=== PATIENT | male | born 1965 | race Caucasian/White ===

== ENCOUNTER → 2020-07-15 | Outpatient (CLI) | payer BC ==
[2020-07-15 09:32] LABS: HCT 49.7 % (39.0-53.0); HGB 16.2 gm/dL (13.0-17.5); MCH 30.5 pg (25.0-35.0); MCHC 32.6 g/dL (31.0-37.0); MCV 93.5 fL (80.0-100.0); Mean Platelet Volume 6.3; Platelet Count 237 k/uL (150-450); RBC 5.32 m/uL (4.30-5.90); RDW 13.6 % (11.5-15.5); WBC 7.3 k/uL (3.8-10.6)
[2020-07-15 14:47] LABS: African American GFR (CKD) 87.7 (60.0-200.0); Albumin 4.4 g/dL (3.80-4.90); Albumin/Globulin Ratio 2.32 (1.60-3.17); Anion Gap 6.9 mmol/L (4.00-12.00); BUN/Creat Ratio 22.73 Ratio (12.00-20.00); Calcium 8.7 mg/dL (8.7-10.3); Carbon Dioxide 30.1 mmol/L (21.6-31.8); Globulin 1.9 g/dL (1.6-3.3); LDL Cholesterol,Calculated 89.8 mg/dL (0.0-131.0); Non-African American GFR(CKD) 75.7 (60.0-200.0); Potassium 4.2 mmol/L (3.5-5.5); Total Bilirubin 0.8 mg/dL (0.2-1.2); Total Protein 6.3 g/dL (6.2-8.2); VLDL Calculation 30.2 mg/dL (5.00-40.00)
[2020-07-15 14:57] LABS: Prostate Specific Antigen 0.6 ng/mL (0.0-3.5)
== END | disposition home or self-care (01) ==
LOC: LABWHC1 08:23
PROVIDERS: ATTEND Family Medicine
DX: Z00.01 Encounter for general adult medical examination with abnormal findings (principal)
CPT/HCPCS: 36415; 80053; 80061; 84153; 85027

== ENCOUNTER 2020-09-01 13:55 | Emergency (ER) | payer BC ==
[2020-09-01 14:08] VITALS: RESP 18
[2020-09-01] MEDS ORDERED: SODIUM CHLORIDE 0.9% 1,000 ML IV STA (14:55)
[2020-09-01] MEDS ORDERED: ONDANSETRON 4 MG/2 ML VIAL IVP STA (14:55)
[2020-09-01] MEDS ORDERED: KETOROLAC 15 MG/ML 1 ML VIAL IVP STA (14:55)
--- NOTE | 2020-09-01 15:07 | ED ---
General Adult HPI - General Chief complaint: Abdominal Pain Stated complaint: Abd pain Time Seen by Provider: 09/01/20 14:26 Source: patient, RN notes reviewed Mode of arrival: ambulatory Limitations: no limitations - History of Present Illness Initial comments: 55-year-old male with a past medical history of hyperlipidemia, hypertension, asthma presents to the emergency room for a chief complaint of abdominal pain. Patient reports that 3 days ago at night he started to have right lower quadrant pain. States it is severe. States it comes and goes and seems to be worse at night. States he has also had nausea and vomiting. He has had some diarrhea as well. Today he has not had too much of an appetite.Patient has no other complaints at this time including shortness of breath, chest pain, nausea or vomiting, headache, or visual changes. - Related Data Home Medications Medication Instructions Recorded Confirmed Aspirin EC [Ecotrin Low Dose] 81 mg PO DAILY 09/01/20 09/01/20 Fluticasone Nasal [place] [Flonase 1 spray EA NOSTRIL BID PRN 09/01/20 09/01/20 Nasal [place]] Metoprolol Succinate (ER) [Toprol 25 mg PO DAILY 09/01/20 09/01/20 Xl] Montelukast Sodium [Singulair] 10 mg PO HS 09/01/20 09/01/20 Multivitamins, Thera [Multivitamin 1 tab PO DAILY 09/01/20 09/01/20 (formulary)] Simvastatin [Zocor] 10 mg PO HS 09/01/20 09/01/20 Previous Rx's Medication Instructions Recorded Ibuprofen [Motrin] 600 mg PO Q6HR PRN #20 tab 09/01/20 Ondansetron [Zofran ODT] 4 mg PO Q8HR PRN #15 tab 09/01/20 Tamsulosin [Flomax] 0.4 mg PO DAILY #20 cap 09/01/20 Allergies Allergy/AdvReac Type Severity Reaction Status Date / Time No Known Allergies Allergy Verified 09/01/20 16:29 Review of Systems ROS Statement: Those systems with pertinent positive or pertinent negative responses have been documented in the HPI. ROS Other: All systems not noted in ROS Statement are negative. Past Medical History Past Medical History: Asthma, Hyperlipidemia, Hypertension History of Any Multi-Drug Resistant Organisms: None Reported Past Surgical History: Appendectomy, Orthopedic Surgery Past Psychological History: No Psychological Hx Reported Smoking Status: Never smoker Past Alcohol Use History: Occasional Past Drug Use History: None Reported General Exam Limitations: no limitations General appearance: alert Head exam: Present: atraumatic Eye exam: Present: normal appearance, PERRL, EOMI ENT exam: Present: normal exam, mucous membranes moist Neck exam: Present: normal inspection, full ROM. Absent: tenderness Respiratory exam: Present: normal lung sounds bilaterally. Absent: respiratory distress, wheezes Cardiovascular Exam: Present: regular rate, normal rhythm, normal heart sounds GI/Abdominal exam: Present: soft, normal bowel sounds. Absent: distended, tenderness (no tenderness), guarding, rebound, rigid Back exam: Absent: CVA tenderness (R), CVA tenderness (L) Course Vital Signs 09/01/20 09/01/20 09/01/20 14:05 15:10 16:28 Temperature 98.4 F 98.3 F Pulse Rate 107 H 76 84 Respiratory 18 18 18 Rate Blood Pressure 177/122 139/90 137/90 O2 Sat by Pulse 98 97 96 Oximetry Medical Decision Making - Medical Decision Making Vitals stable. CBC unremarkable. Patient did have hemoconcentration and was dehydrated and was given a liter of fluids. Gen. Jose Juan. Urinalysis did show red blood cells. No sign of infection. CT abdomen and pelvis did show a partially obstructive distal right ureteral calculus measuring 7 mm.Patient's pain is controlled. Discussed pain control. Discussed following up with urology. Patient will return for any worsening symptoms. - Lab Data Result diagrams: 09/01/20 15:01 09/01/20 15:01 Lab Results 09/01/20 09/01/20 09/01/20 Range/Units 15:01 15:01 15:01 WBC 11.8 H (3.8-10.6) k/uL RBC 5.59 (4.30-5.90) m/uL Hgb 17.7 H (13.0-17.5) gm/dL Hct 51.6 (39.0-53.0) % MCV 92.3 (80.0-100.0) fL MCH 31.7 (25.0-35.0) pg MCHC 34.3 (31.0-37.0) g/dL RDW 13.0 (11.5-15.5) % Plt Count 292 (150-450) k/uL MPV 6.5 Neutrophils % 68 % Lymphocytes % 26 % Monocytes % 5 % Eosinophils % 0 % Basophils % 0 % Neutrophils # 8.0 H (1.3-7.7) k/uL Lymphocytes # 3.1 (1.0-4.8) k/uL Monocytes # 0.5 (0-1.0) k/uL Eosinophils # 0.0 (0-0.7) k/uL Basophils # 0.0 (0-0.2) k/uL Sodium 142 (137-145) mmol/L Potassium 4.5 (3.5-5.1) mmol/L Chloride 103 (98-107) mmol/L Carbon Dioxide 28 (22-30) mmol/L Anion Gap 11 mmol/L BUN 23 H (9-20) mg/dL Creatinine 1.17 (0.66-1.25) mg/dL Est GFR (CKD-EPI)AfAm 81 (>60 ml/min/1.73 sqM) Est GFR (CKD-EPI)NonAf 70 (>60 ml/min/1.73 sqM) Glucose 117 H (74-99) mg/dL Calcium 9.5 (8.4-10.2) mg/dL Total Bilirubin 0.8 (0.2-1.3) mg/dL AST 42 (17-59) U/L ALT 45 (4-49) U/L Alkaline Phosphatase 81 (38-126) U/L Total Protein 7.3 (6.3-8.2) g/dL Albumin 4.7 (3.5-5.0) g/dL Amylase 63 (30-110) U/L Lipase 42 (23-300) U/L Urine Color Yellow Urine Appearance Clear (Clear) Urine pH 7.0 (5.0-8.0) Ur Specific [place] 1.014 (1.001-1.035) Urine Protein Negative (Negative) Urine Glucose (UA) Negative (Negative) Urine Ketones Negative (Negative) Urine Blood Large H (Negative) Urine Nitrite Negative (Negative) Urine Bilirubin Negative (Negative) Urine Urobilinogen <2.0 (<2.0) mg/dL Ur Leukocyte Esterase Negative (Negative) Urine RBC 125 H (0-5) /hpf Urine WBC 1 (0-5) /hpf Urine Mucus Rare H (None) /hpf Disposition Clinical Impression: Kidney stone on right side Disposition: HOME SELF-CARE Condition: Good Instructions (If sedation given, give patient instructions): Kidney Stones (ED) Additional Instructions: Please take Motrin for pain. If pain is severe take Tylenol 3. Please take Zofran as needed for nausea. Take Flomax daily. Follow up with urology by calling tomorrow for an appointment. Return to the emergency room for any worsening symptoms. Prescriptions: Tamsulosin [Flomax] 0.4 mg PO DAILY #20 cap Ibuprofen [Motrin] 600 mg PO Q6HR PRN #20 tab PRN Reason: Pain Ondansetron [Zofran ODT] 4 mg PO Q8HR PRN #15 tab PRN Reason: Nausea Is patient prescribed a controlled substance at d/c from ED?: No Referrals: Herber Lovell MD [Primary Care Provider] - 1-2 days Yared Bowden MD [STAFF PHYSICIAN] - 1-2 days Time of Disposition: 17:00
[2020-09-01 15:14] LABS: Basophils % (A) 0 %; Eosinophils % (A) 0 %; HCT 51.6 % (39.0-53.0); HGB 17.7 gm/dL (13.0-17.5); Lymphocytes # (A) 3.1 k/uL (1.0-4.8); Lymphocytes % (A) 26 %; MCH 31.7 pg (25.0-35.0); MCHC 34.3 g/dL (31.0-37.0); MCV 92.3 fL (80.0-100.0); Mean Platelet Volume 6.5; Monocytes # (A) 0.5 k/uL (0-1.0); Monocytes % (A) 5 %; Neutrophils % (A) 68 %; Platelet Count 292 k/uL (150-450); RBC 5.59 m/uL (4.30-5.90); WBC 11.8 k/uL (3.8-10.6)
[2020-09-01 15:21] LABS: Appearance,Urine Clear (Clear); Bilirubin,Urine Negative (Negative); Blood,Urine Large (Negative); Color,Urine Yellow; Glucose,Urine (UA) Negative (Negative); Ketones,Urine Negative (Negative); Leukocyte Esterase,Urine Negative (Negative); Mucus,Urine Rare /hpf; Nitrite,Urine Negative (Negative); Protein,Urine Negative (Negative); RBC,Urine 125 /hpf (0-5); Specific Gravity,Urine 1.014 (1.001-1.035); Urobilinogen,Urine <2.0 mg/dL (<2.0); WBC,Urine 1 /hpf (0-5)
[2020-09-01 15:23] LABS: Albumin 4.7 g/dL (3.5-5.0); Calcium 9.5 mg/dL (8.4-10.2); Potassium 4.5 mmol/L (3.5-5.1); Total Bilirubin 0.8 mg/dL (0.2-1.3); Total Protein 7.3 g/dL (6.3-8.2)
--- NOTE | 2020-09-01 15:59 | CT ---
EXAMINATION TYPE: CT abdomen pelvis w con DATE OF EXAM: 09/01/2020 COMPARISON: HISTORY: Severe stomach pains CT DLP: 1015.6 mGycm Automated exposure control for dose reduction was used. TECHNIQUE: Helical acquisition of images from the lung bases through the pelvis have been completed. CONTRAST: Performed without Oral Contrast and with IV Contrast, patient injected with 100 mL of Isovue 300. FINDINGS: Posterior right diaphragmatic hernia contains fat LUNG BASES: No significant abnormality is appreciated. AORTA: No significant abnormality is appreciated. LIVER/GB: No significant abnormality is appreciated. PANCREAS: No significant abnormality is seen. SPLEEN: No significant abnormality is seen. ADRENALS: No significant abnormality is seen. KIDNEYS: There is some mild right-sided hydronephrosis, right hydroureter, perinephric inflammatory c hanges. Distal right ureteral calculus is present measuring approximately 7 mm in transverse dimensio n, 5 mm in cephalad to caudal dimension. Punctate nonobstructive calculus present at the midpole the right kidney. REPRODUCTIVE ORGANS: No significant abnormality is seen BOWEL: No significant abnormality is seen. FREE AIR: No Free Air visible. ASCITES: None visible. PELVIC ADENOPATHY: None visualized. RETROPERITONEAL ADENOPATHY: No Retroperitoneal Adenopathy visible. URINARY BLADDER: No significant abnormality is seen. OSSEOUS STRUCTURES: There are some degenerative disc changes in the lower lumbar spine. IMPRESSION: PARTIALLY OBSTRUCTIVE DISTAL RIGHT URETERAL CALCULUS,
[2020-09-01 16:29] VITALS: BP 137/90; PULSE 84; TEMP 98.3
[2020-09-01] MEDS ORDERED: ACET/COD 300 MG/30 MG STARTER PACK 6 TAB BTL PO STA (17:01)
--- NOTE | 2020-09-01 18:50 | XR ---
EXAM: Abdomen radiograph. HISTORY: Pain. TECHNIQUE: Supine and upright AP views. COMPARISON: Same-day CT. FINDINGS: There are nondilated bowel loops with a nonobstructive pattern. No free air. No acute osseous abnorma lity seen. There is excreted contrast opacification of the renal collecting system and urinary bladde r. There is mild dilatation of the right renal collecting system, consistent with known hydronephrosi s. The known right ureteral calculus is radiographically occult. IMPRESSION: Nonobstructive bowel gas pattern.
== END 2020-09-01 17:13 | disposition home or self-care (01) ==
LOC: EC 13:55
DX: N20.2 Calculus of kidney with calculus of ureter (principal); E86.0 Dehydration; I10 Essential (primary) hypertension; J45.909 Unspecified asthma, uncomplicated; E78.5 Hyperlipidemia, unspecified; Z79.82 Long term (current) use of aspirin; Z79.899 Other long term (current) drug therapy; Z90.89 Acquired absence of other organs
CPT/HCPCS: 36415; 80053; 82150; 83690; 85025; 81001; 74018; 74177; 99284; 96374; 96375; 96361; J2405; J1885; Q9967

== ENCOUNTER 2020-09-09 14:43 | Day surgery (SDC) | payer BC ==
[2020-09-07 14:21] VITALS: BMI 28.7
--- NOTE | 2020-09-08 21:13 | P.HPIHPCON ---
History of Present Illness H&P Date: 09/09/20 Chief Complaint: right ureteral calculi 55 yo male with hx of 7mm right distal stone, patient has been symptomatic secondary to his stone, surgical option including ureteroscopy with holmium laser and ESWL was discussed with him. I discussed with him the risk and benefit of each approach. He agreed to proceed with right sided ureteroscopy with holmium laser lithotripsy. He understood the risk which include but not limited to bleeding, infection and injury to the ureter. Consent for Procedure: I have explained the operation/procedure to the patient, including the risks, benefits, side effects, alternative therapies (including not receiving the proposed treatment or service), the likelihood of the patient achieving his/her goals, and potential recuperation problems for the procedure/sedation/analgesia, as well as any blood products, if indicated. I also explained to the patient the risks, benefits and side effects of the alternatives, as well as the risks related to not receiving the proposed procedure, care, treatment, or services. Past Medical History Past Medical History: Asthma, Cancer, Hyperlipidemia, Hypertension, Skin Disorder Additional Past Medical History / Comment(s): kidney stones , hx migraines, psoriatric arthritis, psoriasis, borderline cholesterol, melanoma History of Any Multi-Drug Resistant Organisms: None Reported Past Surgical History: Appendectomy, Orthopedic Surgery Additional Past Surgical History / Comment(s): surgery to remove melanoma, ORIF rt ankle, rt shoulder rotator cuff Past Anesthesia/Blood Transfusion Reactions: No Reported Reaction Smoking Status: Never smoker - Past Family History Mother Family Medical History: No Reported History Medications and Allergies Home Medications Medication Instructions Recorded Confirmed Type Aspirin EC [Ecotrin Low Dose] 81 mg PO HS 09/01/20 09/07/20 History Fluticasone Nasal [place] [Flonase 1 spray EA NOSTRIL BID 09/01/20 09/07/20 History Nasal [place]] Ibuprofen [Motrin] 600 mg PO Q6HR PRN #20 tab 09/01/20 09/07/20 Rx Metoprolol Succinate (ER) [Toprol 12.5 mg PO DAILY 09/01/20 09/07/20 History Xl] Montelukast Sodium [Singulair] 10 mg PO HS 09/01/20 09/07/20 History Multivitamins, Thera [Multivitamin 1 tab PO DAILY 09/01/20 09/07/20 History (formulary)] Ondansetron [Zofran ODT] 4 mg PO Q8HR PRN #15 tab 09/01/20 09/07/20 Rx Simvastatin [Zocor] 10 mg PO HS 09/01/20 09/07/20 History Acetaminophen-Codeine 300-30mg 1 tab PO DIRECTED PRN 09/07/20 09/07/20 History [Tylenol w/codeine #3] Tamsulosin [Flomax] 0.4 mg PO HS 09/07/20 09/07/20 History Allergies Allergy/AdvReac Type Severity Reaction Status Date / Time No Known Allergies Allergy Verified 09/07/20 14:10 Surgical - Exam - General well developed, well nourished, no distress, moderate pain - Respiratory normal expansion, normal respiratory effort - Abdomen Abdomen: soft, non tender Assessment and Plan Assessment: 55 yo male with hx of 7 mm right sided ureteral stone -OR for right sided ureteroscopy with homium laser, stone basketting and possible stent placement
[2020-09-09] MEDS ORDERED: ONDANSETRON 4 MG/2 ML VIAL ONE (15:13)
--- NOTE | 2020-09-09 15:21 | XR ---
EXAMINATION TYPE: XR KUB DATE OF EXAM: 09/09/2020 Comparison: 09/01/2020 Clinical History: 55-year-old male presurgical evaluation, kidney stones Findings: 7 mm calculus in the right side of the pelvis is redemonstrated. Nonobstructive bowel gas pattern. Sc attered [id number] stool. Impression: Persistent 7 mm distal right ureteral or UVJ calculus.
[2020-09-09] MEDS ORDERED: ONDANSETRON 4 MG/2 ML VIAL IVP ONE (15:32)
[2020-09-09] MEDS ORDERED: LACTATED RINGERS 1,000 ML IV ONE ×4 (15:32→19:00)
[2020-09-09] MEDS ORDERED: DEXAMETHASONE SOD PHOSPHATE 4 MG/ML 1 ML VIAL IVP ONE (15:32)
[2020-09-09] MEDS ORDERED: PROPOFOL 10 MG/ML 20 ML VIAL IV ONE (17:10)
[2020-09-09] MEDS ORDERED: NEOSTIGMINE 1 MG/ML 10 ML VIAL ONE (17:10)
[2020-09-09] MEDS ORDERED: MIDAZOLAM 2 MG/2 ML VIAL ONE (17:10)
[2020-09-09] MEDS ORDERED: LIDOCAINE 1% INJ 10MG/ML (20 ML MDV) ONE (17:10)
[2020-09-09] MEDS ORDERED: SUCCINYLCHOLINE CHLORIDE 100 MG/5 ML SYR IV ONE (17:10)
[2020-09-09] MEDS ORDERED: fentaNYL (PF) 50 MCG/ML 2 ML AMP ONE (17:10)
[2020-09-09] MEDS ORDERED: ROCURONIUM 10 MG/ML (5 ML VIAL) IV ONE (17:10)
[2020-09-09] MEDS ORDERED: GLYCOPYRROLATE 0.2 MG/ML 2 ML VIAL ONE (17:10)
[2020-09-09] MEDS ORDERED: IOHEXOL 350 MG/ML 50 ML in EMPTY BAG 1 BAG IRRIGATION ONE (17:56)
--- NOTE | 2020-09-09 18:11 | P.OP ---
Date of Procedure: 09/09/20 Preoperative Diagnosis: Right ureteral calculi Postoperative Diagnosis: Same Procedure(s) Performed: Cystoscopy, right ureteroscopy, holmium laser lithotripsy, stone basketing, retrograde pyelogram and stent placement Implants: 6-[place] by 26 cm stent left on a string Anesthesia: KIRILL Surgeon: Christ Fernandez Estimated Blood Loss (ml): 1 Pathology: other (Right ureteral calculi) Condition: stable Disposition: PACU Indications for Procedure: 55 yo male with hx of 7mm right distal stone, patient has been symptomatic secondary to his stone, surgical option including ureteroscopy with holmium laser and ESWL was discussed with him. I discussed with him the risk and benefit of each approach. He agreed to proceed with right sided ureteroscopy with holmium laser lithotripsy. He understood the risk which include but not limited to bleeding, infection and injury to the ureter. Operative Findings: Right distal ureteral stone Description of Procedure: Patient was brought to the operating room, general anesthesia was induced. He was prepped and draped so fashion a placement dorsal lithotomy position. Cystoscopy fitted with 21-[place] sheath was inserted per urethra, cystoscopy was performed showed no abnormality within the bladder. This time the cystoscope was withdrawn and a semirigid ureteroscope was inserted and advanced through the urethra, the right ureteral orifice was identified and the ureteroscope was advanced up the ureteral orifice, a stone was encountered in the distal ureter. Using a holmium laser the stone was fragmented into small fragments. Sizable fragments were removed using the stone basket. Stone fragments were sent for analysis. At this time the ureteroscope was advanced to the proximal ureter which showed no evidence of additional stones or injury to the ureter. Retrograde pyelogram was performed through the ureteroscope which showed no filling defect in the kidney. Of note there was mild hydronephrosis. Pullback ureteroscopy was performed which showed no injury to the ureter or ureteral fragments. A sensor wire was advanced through the ureteroscope as the ureteroscope was withdrawn. Next a ureteral stent was passed over the wire, the proximal curl was visualized on fluoroscopy and distal curl was visualized using the cystoscope. The stent was left on string. The bladder was emptied at the end of the case. The patient tolerated procedure well was taken to PACU in stable condition
[2020-09-09] MEDS ORDERED: KETOROLAC 15 MG/ML 1 ML VIAL IVP ONE (18:53)
[2020-09-09 19:15] VITALS: RESP 16
[2020-09-09 20:11] VITALS: BP 143/83; PULSE 82; TEMP 98.2
--- NOTE | 2020-09-10 08:52 | FL ---
EXAMINATION TYPE: FL urography retrograde DATE OF EXAM: 09/09/2020 COMPARISON: NONE HISTORY: Fluoroscopy TECHNIQUE: Fluoroscopy. FINDINGS: Fluoroscopic guidance was provided of 3 seconds. IMPRESSION: As Above.
== END 2020-09-09 20:27 | disposition home or self-care (01) ==
LOC: OR 14:43 → 4SSUR 18:15 → OR 20:27
PROVIDERS: ATTEND Urology
DX: N13.2 Hydronephrosis with renal and ureteral calculous obstruction (principal); I10 Essential (primary) hypertension; E78.5 Hyperlipidemia, unspecified; J45.909 Unspecified asthma, uncomplicated; Z87.442 Personal history of urinary calculi; Z79.899 Other long term (current) drug therapy; L40.50 Arthropathic psoriasis, unspecified; Z85.820 Personal history of malignant melanoma of skin; Z98.890 Other specified postprocedural states; G43.909 Migraine, unspecified, not intractable, without status migrainosus; Z79.82 Long term (current) use of aspirin
CPT/HCPCS: 82365; 74420; 74018; 52356; C2625; C1769; J2250; J1100; J2710; J0690; J2405; J2001; J3010; J1885; J0330; J2704; Q9967

== ENCOUNTER → 2020-12-06 | Outpatient (CLI) | payer BC ==
--- NOTE | 2020-12-07 07:13 | US ---
EXAMINATION TYPE: US kidneys/renal and bladder DATE OF EXAM: 12/06/2020 COMPARISON: NONE CLINICAL HISTORY: N20.1 Calculus of ureter. Recent ureter stone on the right in Aug 2020, did have st one removed, no symptoms now EXAM MEASUREMENTS: Right Kidney: 10.4 x 6.3 x 5.5 cm Left Kidney: 11.3 x 4.7 x 6.1 cm Right Kidney: No hydronephrosis or masses seen Left Kidney: No hydronephrosis or masses seen Bladder: wnl Bilateral Jets seen: Only the right ureteral jet was seen. There is no evidence for hydronephrosis at this point in time. No nephrolithiasis is seen. No renee s are identified. The urinary bladder is anechoic. Bilateral ureteral jets are seen. IMPRESSION: Only the right ureteral jet was seen. Otherwise, Unremarkable sonographic study of the kidneys.
== END | disposition home or self-care (01) ==
LOC: RADUSWWP 09:36
PROVIDERS: ATTEND Urology
DX: N20.1 Calculus of ureter (principal)
CPT/HCPCS: 76770

== ENCOUNTER → 2021-10-11 | Outpatient (CLI) | payer OTHER, BC ==
[2021-10-11 10:32] LABS: Basophils # (A) 0.03 X 10*3/uL (0.00-0.10); Basophils % (A) 0.4 %; Eosinophils # (A) 0.13 X 10*3/uL (0.04-0.35); Eosinophils % (A) 1.7 %; HCT 49.6 % (39.6-50.0); HGB 16.3 g/dL (13.0-17.0); Immature Grans, Automated 0.3 %; Lymphocytes % (A) 47.7 %; MCH 30.1 pg (27.0-32.0); MCHC 32.9 g/dL (32.0-37.0); MCV 91.5 fL (80.0-97.0); Mean Platelet Volume 8.9 fL (9.5-12.2); Monocytes # (A) 0.41 X 10*3/uL (0.20-1.00); Monocytes % (A) 5.4 %; NRBC Per 100 WBC 0 /100 WBCS (0.0-0.0); Neutrophils # (A) 3.36 X 10*3/uL (1.80-7.70); Neutrophils % (A) 44.5 %; Platelet Count 229 X 10*3/uL (140-440); RBC 5.42 X 10*6/uL (4.40-5.60); RDW 13.5 % (11.5-14.5); WBC 7.55 X 10*3/uL (4.50-10.00)
[2021-10-11 10:40] LABS: ALT 43 U/L (10-49); AST 24 U/L (14-35); African American GFR (CKD) 78.4 (60.0-200.0); Albumin 4.5 g/dL (3.8-4.9); Albumin/Globulin Ratio 2.14 (1.60-3.17); Alkaline Phosphatase 86 U/L (41-126); BUN/Creat Ratio 21.75 Ratio (12.00-20.00); Blood Urea Nitrogen 26.1 mg/dL (9.0-27.0); Calcium 9.2 mg/dL (8.7-10.3); Carbon Dioxide 26.5 mmol/L (20.0-27.5); Chloride 102 mmol/L (96-109); Chol/HDL Ratio 4.18 Ratio; Globulin 2.1 g/dL (1.6-3.3); Glucose 118 mg/dL (70-110); LDL Cholesterol,Calculated 93.7 mg/dL (0.0-131.0); Non-African American GFR(CKD) 67.7 (60.0-200.0); Potassium 4.4 mmol/L (3.5-5.5); Sodium 139 mmol/L (135-145); Total Protein 6.6 g/dL (6.2-8.2)
[2021-10-11 11:30] LABS: Appearance,Urine Clear (Clear); Bilirubin,Urine Negative (Negative); Blood,Urine Negative (Negative); Color,Urine Yellow (Yellow); Ketones,Urine Negative (Negative); Leukocyte Esterase,Urine Negative (Negative); Nitrite,Urine Negative (Negative); Protein,Urine Negative (Negative); Specific Gravity,Urine 1.024 (1.001-1.030)
== END | disposition home or self-care (01) ==
LOC: LABWHC1 07:38
PROVIDERS: ATTEND Family Medicine
DX: Z00.00 Encounter for general adult medical examination without abnormal findings (principal); Z12.11 Encounter for screening for malignant neoplasm of colon; E78.5 Hyperlipidemia, unspecified
CPT/HCPCS: 36415; 80053; 80061; 81003; 85025

== ENCOUNTER 2022-04-18 08:04 | Day surgery (SDC) | payer OTHER, BC ==
[~2022-04-18 08:04] MED LIST: LACTATED RINGERS 1,000 ML IV SCH
[2022-04-18 08:20] VITALS: TEMP 97.8
[2022-04-18] MEDS ORDERED: LACTATED RINGERS 1,000 ML IV ONE (08:22)
[2022-04-18] MEDS ORDERED: PROPOFOL 10 MG/ML 20 ML VIAL IV ONE (09:02)
[2022-04-18] MEDS ORDERED: LIDOCAINE 2% INJ 20 MG/ML (2 ML VIAL) ONE (09:02)
--- NOTE | 2022-04-18 09:05 | P.GSHP ---
History of Present Illness H&P Date: 04/18/22 Chief Complaint: Colon cancer screening 57-year-old male here today for colonoscopy. He has not had one previously. No bowel complaints. Family history of colon cancer in his grandmother. Past Medical History Past Medical History: Asthma, Cancer, Hyperlipidemia, Hypertension, Skin Disorder Additional Past Medical History / Comment(s): kidney stones , hx migraines, psoriatric arthritis, psoriasis, borderline cholesterol, melanoma History of Any Multi-Drug Resistant Organisms: None Reported Past Surgical History: Appendectomy, Orthopedic Surgery Additional Past Surgical History / Comment(s): surgery to remove melanoma, ORIF rt ankle, rt shoulder rotator cuff Past Anesthesia/Blood Transfusion Reactions: No Reported Reaction Smoking Status: Never smoker - Past Family History Mother Family Medical History: No Reported History Father Additional Family Medical History / Comment(s): bypass surgery Medications and Allergies Home Medications Medication Instructions Recorded Confirmed Type Aspirin EC [Ecotrin Low Dose] 81 mg PO HS 09/01/20 04/13/22 History Fluticasone Nasal [place] [Flonase 1 spray EA NOSTRIL DAILY 09/01/20 04/13/22 His tory Nasal [place]] Metoprolol Succinate (ER) [Toprol 12.5 mg PO DAILY 09/01/20 04/13/22 History Xl] Montelukast Sodium [Singulair] 10 mg PO HS 09/01/20 04/13/22 History Multivitamins, Thera [Multivitamin 1 tab PO DAILY 09/01/20 04/13/22 History (formulary)] Simvastatin [Zocor] 10 mg PO HS 09/01/20 04/13/22 History Allergies Allergy/AdvReac Type Severity Reaction Status Date / Time No Known Allergies Allergy Verified 04/13/22 14:51 Surgical - Exam Vital Signs Temp Pulse Resp BP Pulse Ox 97.8 F 68 18 140/82 100 04/18/22 08:19 04/18/22 08:19 04/18/22 08:19 04/18/22 08:19 04/18/22 08:19 Physical exam: General: Well-developed, well-nourished HEENT: Normocephalic, sclerae nonicteric Abdomen: Nontender, nondistended Extremities: No edema Neuro: Alert and oriented Assessment and Plan (1) Colon cancer screening Narrative/Plan: Colon cancer screening Current Visit: Yes Status: Acute Code(s): Z12.11 - ENCOUNTER FOR SCREENING FOR MALIGNANT NEOPLASM OF COLON SNOMED Code(s): 502200559
--- NOTE | 2022-04-18 09:18 | P.PCN ---
Date of Procedure: 04/18/22 Procedure(s) Performed: PREOPERATIVE DIAGNOSIS: Colon cancer screening POSTOPERATIVE DIAGNOSIS: Normal exam PROCEDURE: Colonoscopy ANESTHESIA: MAC SURGEON: Sly Trevino M.D. SPECIMENS: None ENDOSCOPIC PROCEDURE: The patient was placed on the endoscopy table in the left decubitus position. The Olympus colonoscope was inserted into the anus and passed under direct visualization to the base of the cecum. The appendiceal orifice was visualized. From that point the scope was slowly withdrawn inspecti ng all surfaces carefully. There were no neoplastic inflammatory or polypoid lesions throughout the cecum, ascending, transverse, descending, sigmoid and rectum. There was no visible diverticulosis noted. Digital rectal examination was normal. The patient was taken to the recovery room in stable condition per anesthesia guidelines. RECOMMENDATIONS: Resume diet. Follow colonoscopy in 10 years.
[2022-04-18 09:34] VITALS: BP 108/69; PULSE 52; RESP 20
== END 2022-04-18 09:48 | disposition home or self-care (01) ==
LOC: ORWHC2ENDO 08:04
PROVIDERS: ATTEND Surgery
DX: Z12.11 Encounter for screening for malignant neoplasm of colon (principal); I10 Essential (primary) hypertension; E78.5 Hyperlipidemia, unspecified; J45.909 Unspecified asthma, uncomplicated; Z79.890 Hormone replacement therapy; Z79.899 Other long term (current) drug therapy
CPT/HCPCS: 45378; J2704; J2001

== ENCOUNTER → 2025-02-16 | Outpatient (CLI) | payer BC ==
[2025-02-16 13:37] LABS: Basophils # (A) 0.03 10*3/uL (0.00-0.10); Basophils % (A) 0.2 %; Eosinophils # (A) 0.01 10*3/uL (0.04-0.35); Eosinophils % (A) 0.1 %; HCT 46.8 % (39.6-50.0); HGB 15.6 g/dL (13.0-17.0); Lymphocytes # (A) 5.02 10*3/uL (0.90-5.00); Lymphocytes % (A) 34.9 %; MCH 30.4 pg (27.0-32.0); MCHC 33.3 g/dL (32.0-37.0); MCV 91.1 fL (80.0-97.0); Monocytes # (A) 0.25 10*3/uL (0.20-1.00); Monocytes % (A) 1.7 %; Neutrophils # (A) 9.03 10*3/uL (1.80-7.70); Neutrophils % (A) 62.7 %; Platelet Count 245 10*3/uL (140-440); RBC 5.14 10*6/uL (4.40-5.60); RDW 13.5 % (11.5-14.5); WBC 14.40 10*3/uL (4.50-10.00)
[2025-02-16 14:17] LABS: Lymphocytes # (M) 4.90 k/uL (1.0-4.8); Metamyelocytes # (M) 0.14 k/uL (0); Monocytes # (M) 0.29 k/uL (0-1.0); Myelocytes # (M) 0.14 k/uL (0); Neutrophils # (M) 8.93 k/uL (1.3-7.7); Neutrophils % (M) 62 %; Total Cells Counted 100
== END | disposition home or self-care (01) ==
LOC: LABWHC1 13:11
PROVIDERS: ATTEND Family Medicine
DX: D72.820 Lymphocytosis (symptomatic) (principal)
CPT/HCPCS: 36415; 85025